=== PATIENT | female | born 1985 | race Caucasian/White ===

== ENCOUNTER 2016-06-05 19:24 | Emergency (ER) | payer BC ==
[~2016-06-05] VITALS: Ht 149.9 cm; Wt 43.5 kg
[~2016-06-05 19:24] MED LIST: BENZ100C PO
[2016-06-05] MEDS ORDERED: IV NORMAL SALINE 1000ML BAG 1,000 ML IV ONE (20:45)
[2016-06-05 21:11] LABS: BASO % 0 % (0-3); EOS % 1 % (0-3); HEMATOCRIT 38.8 % (36.0-47.0); HEMOGLOBIN 13.2 g/dL (12.0-15.5); LYMPH % 27 % (24-48); MEAN CORPUSCULAR HEMOGLOBIN 29 pg (25-35); MEAN CORPUSCULAR HGB CONC 34 g/dL (31-37); MEAN CORPUSCULAR VOLUME 86 fL (79-100); MONO % 10 % (0-9); NEUT % 61 % (31-73); PLATELET COUNT 190 x10^3/uL (140-400); RED BLOOD COUNT 4.53 x10^6/uL (3.50-5.40); RED CELL DISTRIBUTION WIDTH 12.5 % (11.5-14.5); WHITE BLOOD COUNT 3.8 x10^3/uL (4.0-11.0)
[2016-06-05 21:17] LABS: BILIRUBIN,URINE NEGATIVE (NEG); GLUCOSE,URINE NEGATIVE (NEG); NITRITE,URINE NEGATIVE (NEG); PROTEIN,URINE NEGATIVE (NEG-TRACE)
[2016-06-05 21:19] LABS: CALCIUM 8.8 mg/dL (8.5-10.1); CREATININE 0.6 mg/dL (0.6-1.0); GFR 115.9; POTASSIUM 3.1 mmol/L (3.5-5.1)
[2016-06-05 21:25] LABS: ALBUMIN 3.2 g/dL (3.4-5.0); TOTAL BILIRUBIN 0.3 mg/dL (0.2-1.0); TOTAL PROTEIN 6.3 g/dL (6.4-8.2)
[2016-06-05] MEDS ORDERED: AZITHROMYCIN 250 MG TABLET PO ONE (21:30)
[2016-06-05 21:45] LABS: BACTERIA,URINE MODERATE /HPF (0-FEW); RBC,URINE 0 /HPF (0-2); SQUAMOUS EPITHELIAL CELL,UR MOD /LPF; WBC,URINE OCC /HPF (0-4)
--- NOTE | 2016-06-05 21:47 | PHYS DOC ---
Past Medical History Past Medical History: Anxiety, Endometriosis, Kidney Stone, Other Additional Past Medical Histor: ADHD Past Surgical History: No Surgical History, , Tonsillectomy, Other Additional Past Surgical Histo: ENDOMETRIOSIS, BREAST AUGMENTATION Additional Information: SMOKES E-CIGS Alcohol Use: None Drug Use: None Adult General Chief Complaint Chief Complaint: Congestion HPI HPI Patient is a 31 year old female who presents with cough for the past 6 days. The patient was seen in the emergency department for days ago and diagnosed with a viral illness. Patient states that she has been having fevers persistently over the past 6 days. Patient has been taking Tylenol and ibuprofen with no relief in symptoms. Patient states that she has developed headaches and neck pain over the past 2 days. Patient has had persistent coughing which has been nonproductive. Patient denies any shortness of breath currently. Patient has had intermittent episodes of nausea and vomiting. Patient denies any significant past medical history. Patient has been taking [id number] cough remedies with no relief in symptoms. Review of Systems Review of Systems Constitutional: Fever, chills, bodyaches [] Eyes: Denies change in visual acuity, redness, or eye pain [] HENT: Denies nasal congestion or sore throat [] Respiratory: Cough and shortness breath [] Cardiovascular: No additional information not addressed in HPI [] GI: Denies abdominal pain, nausea, vomiting, bloody stools or diarrhea [] : Denies dysuria or hematuria [] Musculoskeletal: Neck pain [] Integument: Denies rash or skin lesions [] Neurologic: Headache, denies focal weakness or sensory changes [] Current Medications Current Medications Current Medications Medications (Trade) Dose Ordered Sig/Timo Start Time Stop Time Status Last Admin Dose Admin Azithromycin (Zithromax) 500 mg 1X ONCE 06/05/16 21:30 06/05/16 21:31 DC 06/05/16 21:30 500 MG Sodium Chloride (Iv Sodium Chloride 0.9% 1000ml Bag) 1,000 ml @ 1,000 mls/hr 1X ONCE 06/05/16 20:45 06/05/16 21:44 DC 06/05/16 20:45 1,000 MLS/HR Allergies Allergies Allergies Coded Allergies Type Severity Reaction Last Updated Verified amoxicillin Allergy Intermediate 06/01/16 Yes cefaclor Allergy Intermediate 06/01/16 Yes clavulanic acid Allergy Intermediate 06/01/16 Yes Physical Exam Physical Exam Constitutional: Alert, afebrile, no acute distress. [] HENT: Normocephalic, atraumatic, bilateral external ears normal, oropharynx moist, no oral exudates, nose normal. [] Eyes: PERRLA, EOMI, conjunctiva normal, no discharge. [] Neck: Normal range of motion, mild paraspinous muscle tenderness to palpation, supple, no stridor. [] Cardiovascular:Heart rate regular rhythm, no murmur [] Lungs & Thorax: Bilateral rales, no wheezes, no accessory muscle usage present [ ] Abdomen: Bowel sounds normal, soft, no tenderness, no masses, no pulsatile masses. [] Skin: Warm, dry, no erythema, no rash. [] Back: No tenderness, no CVA tenderness. [] Extremities: No tenderness, no cyanosis, no clubbing, ROM intact, no edema. [] Neurologic: Alert and oriented X 3, normal motor function, normal sensory function, no focal deficits noted. [] Current Patient Data Vital Signs Vital Signs Date Time Temp Pulse Resp B/P Pulse Ox O2 Delivery O2 Flow Rate FiO2 06/05/16 22:19 68 111/71 98 Room Air 06/05/16 20:04 99.0 16 99.0 Lab Values Laboratory Tests Test 06/05/16 20:55 06/05/16 21:10 06/05/16 21:15 White Blood Count 3.8x10^3/uL (4.0-11.0) L Red Blood Count 4.53x10^6/uL (3.50-5.40) Hemoglobin 13.2g/dL (12.0-15.5) Hematocrit 38.8% (36.0-47.0) Mean Corpuscular Volume 86fL (79-100) Mean Corpuscular Hemoglobin 29pg (25-35) Mean Corpuscular Hemoglobin Concent 34g/dL (31-37) Red Cell Distribution Width 12.5% (11.5-14.5) Platelet Count 190x10^3/uL (140-400) Neutrophils (%) (Auto) 61% (31-73) Lymphocytes (%) (Auto) 27% (24-48) Monocytes (%) (Auto) 10% (0-9) H Eosinophils (%) (Auto) 1% (0-3) Basophils (%) (Auto) 0% (0-3) Neutrophils # (Auto) 2.3x10^3uL (1.8-7.7) Lymphocytes # (Auto) 1.0x10^3/uL (1.0-4.8) Monocytes # (Auto) 0.4x10^3/uL (0.0-1.1) Eosinophils # (Auto) 0.0x10^3/uL (0.0-0.7) Basophils # (Auto) 0.0x10^3/uL (0.0-0.2) Urine Collection Type Unknown Urine Color Yellow Urine Clarity Clear Urine pH 7.0 Urine Specific Burton 1.020 Urine Protein Negativemg/dL (NEG-TRACE) Urine Glucose (UA) Negativemg/dL (NEG) Urine Ketones (Stick) Negativemg/dL (NEG) Urine Blood Negative (NEG) Urine Nitrite Negative (NEG) Urine Bilirubin Negative (NEG) Urine Urobilinogen Dipstick 1.0mg/dL (0.2 mg/dL) Urine Leukocyte Esterase Negative (NEG) Urine RBC 0/HPF (0-2) Urine WBC Occ/HPF (0-4) Urine Squamous Epithelial Cells Mod/LPF Urine Bacteria Moderate/HPF (0-FEW) Urine Mucus Marked/LPF Sodium Level 141mmol/L (136-145) Potassium Level 3.1mmol/L (3.5-5.1) L Chloride Level 102mmol/L (98-107) Carbon Dioxide Level 31mmol/L (21-32) Anion Gap 8 (6-14) Blood Urea Nitrogen 11mg/dL (7-20) Creatinine 0.6mg/dL (0.6-1.0) Estimated GFR (Cockcroft-Gault) 115.9 BUN/Creatinine Ratio 18 (6-20) Glucose Level 96mg/dL (70-99) Lactic Acid Level 0.6mmol/L (0.4-2.0) Calcium Level 8.8mg/dL (8.5-10.1) Total Bilirubin 0.3mg/dL (0.2-1.0) Aspartate Amino Transferase (AST) 26U/L (15-37) Alanine Aminotransferase (ALT) 42U/L (14-59) Alkaline Phosphatase 57U/L (46-116) Total Protein 6.3g/dL (6.4-8.2) L Albumin 3.2g/dL (3.4-5.0) L Albumin/Globulin Ratio 1.0 (1.0-1.7) POC Urine HCG, Qualitative hcg negative (Negative) Influenza Type A Antigen Negative (NEGATIVE) Influenza Type B Antigen Negative (NEGATIVE) Laboratory Tests 06/05/16 20:55 Laboratory Tests 06/05/16 20:55 EKG EKG Not performed [] Radiology/Procedures Radiology/Procedures One view AP chest x-ray interpreted by me: Bilateral pulmonary infiltrates, no effusions, normal cardiac silhouette [] Course & Med Decision Making Course & Med Decision Making Pertinent Labs and Imaging studies reviewed. (See chart for details) Patient's chest x-ray shows evidence of pneumonia. The patient was started on azithromycin in the emergency department. Patient's influenza test was negative. Had a white count of 3.8 in the emergency department, however she has no other findings that meet SIRS criteria. The patient is appropriate for outpatient treatment of community-acquired pneumonia. The patient will continue on a 5 day course of azithromycin. Advised follow-up in 2-3 days with patient's primary physician and return to emergency department for any worsening symptoms. Patient voiced understanding and in agreement with treatment plan. Dragon Disclaimer Dragon Disclaimer This electronic medical record was generated, in whole or in part, using a voice recognition dictation system. Departure Departure Impression: Primary Impression: Community acquired pneumonia Disposition: 01 HOME, SELF-CARE Condition: IMPROVED Referrals: NO PCP (PCP) Patient Instructions: Pneumonia, Adult Additional Instructions: Follow-up with the primary doctor in 2-3 days. Return to the emergency department for any worsening symptoms. Scripts Azithromycin (Azithromycin Tablet)250 Mg [id number] Mg PO DAILY ANTI-BIOTIC #4 TAB Ref 0 Take your first dose on June 06, 2016 before dinner. Prov:CYNTHIA YOUSSEF MD 06/05/16 CYNTHIA YOUSSEF MD Jun 05, 2016 21:47
[2016-06-05 21:54] LABS: OBC FLU VALID
[2016-06-05 22:19] VITALS: BP 111/71
[2016-06-05] MEDS ORDERED: AZIT250T6 PO (22:21)
--- NOTE | 2016-06-06 07:44 | RAD ---
Portable AP upright view CXR: Clinical indications: Cough and fever today. Comparison: None. Findings: Left midlung zone and left lower lobe lung infiltrates are seen. Right midlung zone infiltrate is seen. No pleural effusion or pneumothorax is seen. The heart size, pulmonary vasculature, mediastinum and both arminda are unremarkable. Impression: Bilateral lung infiltrates..
== END 2016-06-05 22:49 | disposition home or self-care (01) ==
LOC: ER 19:24
DX: J18.9 Pneumonia, unspecified organism (principal); R51 Headache; F90.9 Attention-deficit hyperactivity disorder, unspecified type; F17.210 Nicotine dependence, cigarettes, uncomplicated; Z90.89 Acquired absence of other organs; Z88.1 Allergy status to other antibiotic agents; Z88.8 Allergy status to other drugs, medicaments and biological substances
CPT/HCPCS: 36415; 71010; 80053; 81001; 81025; 83605; 85027; 87040; 87086; 87804; 96360; 99285; J7030; Q0144